=== PATIENT | female | born 1975 | race Caucasian/White ===

== ENCOUNTER 2018-02-02 22:56 | Emergency (ER) | payer BC ==
[2018-02-02] MEDS ORDERED: KETOROLAC TROMETHAMINE 30 MG/ML SOL ONE (23:55)
[2018-02-03 00:55] VITALS: RESP 20; TEMP 98.5
[2018-02-03 01:05] VITALS: BP 109/67; PULSE 89; O2SAT 98
== END 2018-02-03 00:35 | disposition home or self-care (01) ==
LOC: ED 22:56
DX: M25.512 Pain in left shoulder (principal); M79.602 Pain in left arm
CPT/HCPCS: 99282; J1885